=== PATIENT | female | born 1945 | race Caucasian/White ===

== ENCOUNTER 2016-06-30 10:03 | Inpatient (IN) | payer MEDICARE, MEDICAID ==
[~2016-06-30] VITALS: Ht 149.9 cm; Wt 36.3 kg
[~2016-06-30 10:03] MED LIST: ALBU8.5H2 INHALATION; ASPI81TA3 PO; ATRV10T PO; CALC-890 PO; CIPR-231 PO; METH2.5T PO; MULT-1018 PO; OXYB5TAB PO; PRD2.5T PO; SERT50TA PO; WARF2.5T82 PO
[2016-06-30 10:08] VITALS: BP 84/51; PULSE 89; RESP 28; O2SAT 92
--- NOTE | 2016-06-30 10:17 | ED.REPORT ---
HPI-General Illness Date of Service Jun 30, 2016 ED Provider: Dr. Thomas 70 year old female with a history of stroke, pulmonary embolism on Coumadin with a melinda filter, COPD, and current smoker who presents to the ED due to increased weakness, dysuria and SOB since yesterday. This morning the patient was severely SOB and called Life Alert. Pt's daughter is a nurse and noted her to be dyspneic with a RR of 40 and tachycardic at 120 this morning. En route to the ER the patient's breathing improved. Pt states her breathing is at baseline now. Pt typically uses a cane to walk due to residual L sided weakness from the stroke. Today she has required a wheelchair. Last night the patient had an episode of urinary incontinence that soiled her depends and her bed. She reports "my urethra hurts all the time but it hurts 9/10 when I pee." Pt has been on Cipro recently, but after recent UA, there was not signs of UTI. Additionally, pt has symptoms of malaise, urinary urgency, lethargy, decreased appetite, nausea and vomiting. Pt denies CP. Pt was diagnosed with shingles 1 month ago, but her symptoms have since resolved. Nursing Notes Stated Complaint: SOB/POSS UTI Chief Complaint: Respiratory Distress Nursing Notes Reviewed: Yes Allergies: Coded Allergies: adalimumab (Verified Allergy, Severe, RASH, 07/18/11) omeprazole (Verified Allergy, Severe, GI UPSET, 07/18/11) Scheduled Aspirin Chew (Aspirin Chew) 81 Mg Chew 81 MG PO DAILY Atorvastatin (Lipitor) 10 Mg Tab 10 MG PO DAILY Calcium Carbonate/Vitamin D3 (Calcium 600 + Vit D3 Tablet) 1 Each Tablet 1 EACH PO DAILY Ciprofloxacin (Cipro) 500 Mg Tablet 500 MG PO BID Methotrexate Sodium (Methotrexate) 2.5 Mg Tablet 25 MG PO WEEKLY Multivitamin (Multi Vitamin Daily) 1 Each Tablet 1 EACH PO DAILY Oxybutynin Chloride ER (Oxybutynin Chloride ER) 5 Mg Tab.er.24 5 MG PO HS Prednisone (PredniSONE) 2.5 Mg Tab 2 MG PO DAILY Sertraline HCl (Zoloft) 50 Mg Tablet 50 MG PO DAILY Warfarin Sodium (Warfarin Sodium) 2.5 Mg Tablet 2.5 MG PO A Warfarin Sodium (Warfarin Sodium) 2.5 Mg Tablet 1.25 MG PO A Scheduled PRN Albuterol HFA (Proair HFA) 8.5 Gm Hfa.aer.ad 2 PUFFS INHALATION Q4H PRN PRN For Shortness of Breath General Time Seen by MD: 10:17 Chief Complaint Breathing problem Hx Obtained From: Patient, Daughter Arrived By: Wheelchair Sudden in Onset?: No Severity: Current: Mild Severity: Maximum: Moderate Associated with: Reports: Shortness of breath, Weakness, Denies: Fever Past Medical History Past Medical History Rheumatoid arthritis Pulmonary embolism on Coumadin Shingles Reports: Asthma, COPD, Stroke Past Surgical History Left knee replacement, left hip replacement, melinda filter Smoking History Current Every Day Smoker Social History Alcohol Use: Denies alcohol use Drug Use: Denies drug use Ambulatory Status Independent Review of Systems Full Review of Systems Constitutional: Reports: Malaise, Weakness - generalized, Denies: Fever Respiratory: Reports: Non-productive cough, Shortness of breath Cardiovascular: Denies: Chest pain GI: Reports: Nausea, Vomiting, Denies: Abdominal pain Female: Reports: Dysuria, Urinary urgency, Denies: Flank pain Skin: Denies Rash Neurologic: Denies: Headache Complete sys rev & neg: except as marked. Physical Exam Vital Signs Vital Signs Date Time Temp Pulse Resp B/P Pulse Ox O2 Delivery O2 Flow Rate FiO2 06/30/16 10:40 83 20 90 Room Air 06/30/16 10:08 36.3 89 28 84/51 92 Room Air Initial VS: Reviewed Head / Eyes: Atraumatic, Normocephalic, PERRL ENT: Conjunctiva normal, No scleral icterus Skin: Warm, Dry, No cyanosis Neurologic: Alert, Oriented, Nonfocal Psychiatric: Mood/affect normal, Behavior normal, Normal thought content Appearance / Presentation: Positive: Cachectic, Frail Neck: Supple, Full range of motion Respiratory / Chest: Breath sounds NL, Breath sounds = bilat, No respiratory distress, No rales, No rhonchi, No wheezing Cardiovascular: Heart rate NL, Regular rhythm, Heart sounds NL, Cap refill not delayed, Peripheral circulation NL No edema Abdomen: Soft, Non-tender, No guarding, No rebound, No palpable mass Organomegaly / Mass / Hernia: Negative: Hepatomegaly, Splenomegaly Upper Extremities Upper Extremity / MS: Neurologic intact, Vascular intact Profound deformities from RA in hands Interpretation & Diagnostics Lab Results Interpretation Result Diagram: 06/30/16 1050 06/30/16 1050 Test 06/30/16 10:50 06/30/16 12:07 White Blood Count 21.4th/mm3 (3.8-10.1) Red Blood Count 4.09mil/mm3 (3.90-5.20) Hemoglobin 12.6g/dL (12.0-15.6) Hematocrit 37.7% (35.0-46.0) Mean Corpuscular Volume 92.2fL (81-100) Mean Corpuscular Hemoglobin 30.8pg (27.0-35.0) Mean Corpuscular Hemoglobin Concent 33.4% (32.0-37.0) Red Cell Distribution Width 16.9% (12.3-15.4) Platelet Count 354bil/L (150-400) Neutrophils (%) (Auto) 91.4% (40-74) Lymphocytes (%) (Auto) 2.2% (14-46) Monocytes (%) (Auto) 6.1% (4-12) Eosinophils (%) (Auto) 0% (0-5) Basophils (%) (Auto) 0.1% (0-3) Prothrombin Time 16.1sec (8.1-12.5) Prothromb Time International Ratio 1.49ratio Sodium Level 136mEq/L (134-144) Potassium Level 4.2mEq/L (3.5-5.2) Chloride Level 96mEq/L (97-108) Carbon Dioxide Level 25mmol/L (18-29) Blood Urea Nitrogen 16mg/dL (8-27) Creatinine 0.71mg/dL (0.57-1.00) Estimat Glomerular Filtration Rate 116mL/min (>59) Glucose Level 113mg/dL (60-99) Calcium Level 8.8mg/dL (8.5-10.1) Total Bilirubin 0.3mg/dL (0.0-1.2) Aspartate Amino Transf (AST/SGOT) 28U/L (0-50) Alanine Aminotransferase (ALT/SGPT) 12U/L (0-32) Alkaline Phosphatase 52U/L (25-165) Troponin T 0.010ug/L (0.0-0.011) Pro-B-Type Natriuretic Peptide 298.5pg/mL (0-301) Total Protein 6.8g/dL (6.4-8.4) Albumin 3.6g/dL (3.4-5.0) Urine Color Yellow (YELLOW) Urine Appearance Hazy (CLEAR,HAZY) Urine pH 5.0 (5.0-8.0) Urine Specific [place] 1.021 (1.003-1.035) Urine Protein 30mg/dL (NEG,TRACE) Urine Glucose (UA) Negativemg/dL (NEGATIVE) Urine Ketones 15mg/dL (NEGATIVE) Urine Occult Blood Small (NEGATIVE) Urine Nitrite Negative (NEGATIVE) Urine Bilirubin Negative (NEGATIVE) Urine Urobilinogen Normalmg/dL (NORMAL) Urine Leukocyte Esterase Moderate (NEGATIVE) Urine RBC 0-2/hpf (0-2) Urine WBC >50/hpf (0-5) Urine Epithelial Cells Moderate/hpf (NONE-MOD) Urine Crystals None seen (NONE SEEN) Urine Bacteria None/hpf (NONE-FEW) Urine Hyaline Casts None/lpf (NONE) Urine Granular Casts None seen (NONE SEEN) Urine Waxy Casts None seen (NONE SEEN) Urine Red Blood Cell Casts None seen (NONE SEEN) Urine White Blood Cell Casts None seen (NONE SEEN) Urine Mucus None seen (None Seen) Urine Trichomonas None seen (NONE SEEN) Urine Yeast None (NONE SEEN) Urinalysis Comment None Urine Culture Reflexed Indicated General Lab Results Interp 1: Labs reviewed ECG Interpretation Time: 10:26 Interpreted by: ED physician Normal ECG Interpretation: Normal ECG w/ rate of... (81) X-Ray Chest Interpretation Chest Xray Interpretation: IMPRESSION: Severe emphysematous change. No acute cardiopulmonary findings. Dictated by: Dena Perez M.D. on 06/30/2016 at 11:06 View: Portable, 1 view Interpretation / Wet Read by: Interpret - Radiologist CT Chest Interpretation IMPRESSION: 1. No acute pulmonary embolus. 2. Severe centrilobular emphysema. 3. Trace right basilar radiopacities. Differential considerations include aspiration, infection, and atelectasis. 4. Aortic atherosclerosis and possible abdominal aortic aneurysm incompletely characterized on this limited view of the abdomen. Dictated by: Dena Perez M.D. on 06/30/2016 at 12:38 Study type: CT pulm angiogram Interpretation / Wet Read by: Interpret - Radiologist Re-Eval/Medical Decision Med Decision/Clinical Course Because of the significant leukocytosis and dramatic dyspnea upon presentation, despite a relatively reassuring workup to this point, I believe overnight observation is appropriate to see if a more definitive diagnosis will declare itself. This woman is gravely disabled from her COPD and continues to smoke and is extremely cachectic and I believe that her reserves have to be minimal. Time of Eval: 11:59 Re-Evaluation/Progress Note: Pt and family updated of labs. Discussed plan for CT chest. Time of Eval: 13:30 Re-Evaluation/Progress Note: Updated pt of labs, ECG and imaging results. Recommended admission. Pt understands and agrees with plan. All questions addressed. Consultation : Referral / Consult Name: Hanna Singh MD Consulted With: Hospitalist Call Returned at: 14:14 College Sports Assistant: Will see patient, Agrees with eval, Agrees with plan, Accepts admit Counseled Regarding: Diagnosis, Lab results, Need for admission Discharge & Departure Primary Impression: Dyspnea Dyspnea type: shortness of breath Qualified Code: R06.02 - Shortness of breath Additional Impression: Leukocytosis Leukocytosis type: unspecified Qualified Code: D72.829 - Elevated white blood cell count, unspecified Disposition: ADMITTED TO HOSPITAL Discharge Condition All VS Reviewed: Yes Referrals: Darius Rooney MD (PCP) Scribe Attestation Portions of this note were transcribed by Karuna Farrar. I, (Dr. Thomas) personally performed the history, physical exam and medical decision-making; I reviewed and confirmed the accuracy of the information in the transcribed note. Signed by: Karuna Farrar. 06/30/2016, 1502 copies to: Darius Rooney MD, Kirk H MD Jun 30, 2016 10:17 Karuna Farrar Jun 30, 2016 10:40
[2016-06-30] MEDS ORDERED: MethylprednisoLONE Sodium Succinate 62.5 mg/mL 2 mL Inj IVPUSH ONE (10:20)
[2016-06-30] MEDS ORDERED: Albuterol-Ipratropium 3 mL Inhalation Solution NEB ONE (10:20)
[2016-06-30 10:40] VITALS: PULSE 83; RESP 20; O2SAT 90
--- NOTE | 2016-06-30 11:08 | DRSVH ---
PROCEDURE: X-RAY CHEST ONE VIEW, PORTABLE ([id number]) INDICATIONS: dyspnea TECHNIQUE: One view of the chest was acquired. COMPARISON: None. FINDINGS: Surgical changes and devices: None. Lungs and pleura: No pleural effusions or pneumothorax. Lungs are clear. The lung volumes are larg e and the diaphragms are flattened suggesting emphysema. Mediastinum: Mediastinal contours appear normal. Heart size is normal. The arch is calcified. Bones and chest wall: No suspicious bony lesions. Overlying soft tissues appear unremarkable. An I VC filter is projected over the epigastric region. IMPRESSION: Severe emphysematous change. No acute cardiopulmonary findings. Dictated by: Dena Perez M.D. on 06/30/2016 at 11:06 Approved by: Dena Perez M.D. on 06/30/2016 at 11:07
[2016-06-30 11:13] LABS: BASOPHILS % (AUTO) 0.1 % (0-3); EOSINOPHILS % (AUTO) 0 % (0-5); MONOCYTES % (AUTO) 6.1 % (4-12); Mean Corpuscular Hemoglobin 30.8 pg (27.0-35.0); Mean Corpuscular Volume 92.2 fL (81-100); NEUTROPHILS % (AUTO) 91.4 % (40-74); Platelet Count 354 bil/L (150-400)
[2016-06-30 11:30] LABS: INR 1.49 ratio
[2016-06-30 11:35] LABS: TROPONIN T 0.01 ug/L (0.0-0.011)
[2016-06-30 12:36] LABS: APPEARANCE,URINE HAZY (CLEAR,HAZY); COLOR,URINE YELLOW (YELLOW); OCCULT BLOOD,URINE SMALL (NEGATIVE); UROBILINOGEN,URINE NORMAL (NORMAL)
--- NOTE | 2016-06-30 12:53 | DRSVH ---
PROCEDURE: CT ANGIO CHEST PULMONARY EMBOLISM ([id number]) INDICATIONS: Dyspnea TECHNIQUE: After the administration of intravenous contrast, 2 mm thick sections acquired from the pulmonary api deneen to the posterior costophrenic angles. 3-dimensional maximum intensity projection (MIP) coronal a nd sagittal reformats were then acquired through the thorax. For radiation dose reduction, the follo wing was used: automated exposure control, adjustment of mA and/or kV according to patient size. COMPARISON: None. FINDINGS: Image quality: Excellent. Pulmonary arteries: Pulmonary arteries are normal in size, and demonstrate no intraluminal filling d efects to suggest central pulmonary embolism. Lungs and pleura: There is severe centrilobular emphysema. Pulmonary scar is present at the lingular base. Trace patchy opacities are present at the right lung base. Mediastinum: Heart size is normal, without pericardial effusion. No mediastinal or hilar adenopathy . Thoracic aorta is normal in caliber and enhancement. Scattered atheromatous calcifications are pre sent within the aortic arch. Esophagus is normal in caliber, without hiatal hernia. Bones and chest wall: No suspicious bony lesions. Ribs and thoracic spine appear intact throughout. Thyroid gland is unremarkable. No axillary or supraclavicular adenopathy. Abdomen: There is likely an abdominal aortic aneurysm which is incompletely characterized. Visualize d upper abdominal solid organs appear otherwise normal in the early arterial phase of enhancement. IMPRESSION: 1. No acute pulmonary embolus. 2. Severe centrilobular emphysema. 3. Trace right basilar radiopacities. Differential considerations include aspiration, infection, and atelectasis. 4. Aortic atherosclerosis and possible abdominal aortic aneurysm incompletely characterized on this l imited view of the abdomen. Dictated by: Dena Perez M.D. on 06/30/2016 at 12:38 Approved by: Dena Perez M.D. on 06/30/2016 at 12:51
[2016-06-30] MEDS ORDERED: Phenazopyridine 97.5 mg Tablet PO PRN (14:50)
[2016-06-30] MEDS ORDERED: Phenazopyridine 97.5 mg Tablet PO ONE (14:50)
--- NOTE | 2016-06-30 14:50 | PCM.HPMED ---
Subjective Date of Service Jun 30, 2016 Primary Provider: Admitting Physician: Primary Care Physician: Darius Rooney MD Attending Physician: Chief Complaint: Shortness of breath [facility] History of present illness 70-year-old female with dyspnea severely this morning , at home respiratory rate 40 heart rate 120 this morning, brought in by EMS, worsening weakness, urinary incontinence acute on chronic. Chronic urethral pain with urination and dull at baseline - the following weren't helpful- recent Cipro 1.5 week ago/pyridium/viocodin The ER, scattered wheeze, blood pressure 84/51, respiratory rate 45 per EMS, improved breathing with DuoNeb's and Solu-Medrol, 90% room air, CBC 20 Review of Systems - none of the following - F/C/ wt change/ MAYA / lightheaded / dizziness / sob / cough / cp / acid reflux //diarrhea / bleeding/bruising / leg swelling / change in voiding / rash, no thrush hx. ambulates FAMILY HX incomplete bladder emptying SOCIAL HX smoker MEDICATIONS Scheduled Aspirin Chew (Aspirin Chew) 81 Mg Chew 81 MG PO DAILY Atorvastatin (Lipitor) 10 Mg Tab 10 MG PO DAILY Calcium Carbonate/Vitamin D3 (Calcium 600 + Vit D3 Tablet) 1 Each Tablet 1 EACH PO DAILY Ciprofloxacin (Cipro) 500 Mg Tablet 500 MG PO BID Methotrexate Sodium (Methotrexate) 2.5 Mg Tablet 25 MG PO WEEKLY Multivitamin (Multi Vitamin Daily) 1 Each Tablet 1 EACH PO DAILY Oxybutynin Chloride ER (Oxybutynin Chloride ER) 5 Mg Tab.er.24 5 MG PO HS Prednisone (PredniSONE) 2.5 Mg Tab 2 MG PO DAILY Sertraline HCl (Zoloft) 50 Mg Tablet 50 MG PO DAILY Warfarin Sodium (Warfarin Sodium) 2.5 Mg Tablet 2.5 MG PO A Warfarin Sodium (Warfarin Sodium) 2.5 Mg Tablet 1.25 MG PO A Scheduled PRN Albuterol HFA (Proair HFA) 8.5 Gm Hfa.aer.ad 2 PUFFS INHALATION Q4H PRN PRN For Shortness of Breath Past Medical/Surgical HX Headache COPD CVA/heart murmur, left-sided residual weakness PE IVC filter 2010 Rheumatoid arthritis knee hip replacement wrist operation Depression Hysterectomy Shingles last month Exam on admission NAD A and O x 3 mood affect WNL NC/AT no icterus no injected eyes EOMI PERRL /no pharyngeal lesions/ no oral lesions / hearing intact Supple neck diminished CTAB equal chest rise / no accessory muscle use / speaks in full sentences / no rrw RRR S1 S2 / no mrg / 2+ radial pulses Soft nt nd + BS no hepatosplenomegaly No edema no cyanosis no ecchymosis of lower extremities No rash / no jaundice FRIEDMAN periurethral vaginal skin w/ red excoriation, no plaques consistent w/ lichen sclerosis/planus, no urethral prolapse EKG 81SR [id number], no ST changes procalcitonin lactic acid UA pending Urine Culture pending INR 1.5 Imaging PROCEDURE: CT ANGIO CHEST PULMONARY EMBOLISM ([id number]) INDICATIONS: Dyspnea TECHNIQUE: After the administration of intravenous contrast, 2 mm thick sections acquired from the pulmonary apices to the posterior costophrenic angles. 3-dimensional maximum intensity projection (MIP) coronal and sagittal reformats were then acquired through the thorax. For radiation dose reduction, the following was used: automated exposure control, adjustment of mA and/or kV according to patient size. COMPARISON: None. FINDINGS: Image quality: Excellent. Pulmonary arteries: Pulmonary arteries are normal in size, and demonstrate no intraluminal filling defects to suggest central pulmonary embolism. Lungs and pleura: There is severe centrilobular emphysema. Pulmonary scar is present at the lingular base. Trace patchy opacities are present at the right lung base. Mediastinum: Heart size is normal, without pericardial effusion. No mediastinal or hilar adenopathy. Thoracic aorta is normal in caliber and enhancement. Scattered atheromatous calcifications are present within the aortic arch. Esophagus is normal in caliber, without hiatal hernia. Bones and chest wall: No suspicious bony lesions. Ribs and thoracic spine appear intact throughout. Thyroid gland is unremarkable. No axillary or supraclavicular adenopathy. Abdomen: There is likely an abdominal aortic aneurysm which is incompletely characterized. Visualized upper abdominal solid organs appear otherwise normal in the early arterial phase of enhancement. IMPRESSION: 1. No acute pulmonary embolus. 2. Severe centrilobular emphysema. 3. Trace right basilar radiopacities. Differential considerations include aspiration, infection, and atelectasis. 4. Aortic atherosclerosis and possible abdominal aortic aneurysm incompletely characterized on this limited view of the abdomen. Active issues and reason for admission sepsis associated w/ Dyspneic/hypotension/leukocytosis due to bilateral pneumonia, confounding subtherapeutic for PE, COPD. --solumedrol -- switch to prednisone --taper to her usual home RA dose when discharged /duoneb/rocephine/waen O2 --sputum cx --SSi and famoitidine while on high dose prednisone Urethral pain due to itchy/erythematous vaginal yeast infection --clotrimazole to vagina qday -- pending Ucx, mycoplasm --f/u urologist if ongoing pain w/o infection and for recently diagnosed bladder diverticulum - pre and post voiding per daughter 31cc then 21cc Chronic issues known prior to admission, present on admission COPD CVA/left-sided residual weakness PE IVC filter 2010 Rheumatoid arthritis knee hip replacement wrist operation Depression smoker --nicotoine patch declined Diet cardiac DVT prophylaxis lovenox therapeutic, coumadin per pharm Code full Disposition inpatient Assessment and plan were discussed with patient and daughter-RN. Allergies Coded Allergies: adalimumab (Verified Allergy, Severe, RASH, 07/18/11) omeprazole (Verified Allergy, Severe, GI UPSET, 07/18/11) PMH Social History Hx Alcohol Use: No Hx Substance Use: No Hx Tobacco Use: Yes Smoking Status: Current Every Day Smoker Exam Vital Signs Vital Sign - Last Date Time Temp Pulse Resp B/P Pulse Ox O2 Delivery O2 Flow Rate FiO2 06/30/16 10:40 83 20 90 Room Air 06/30/16 10:08 36.3 84/51 Lab and Diagnostics Result Diagram: 06/30/16 1050 06/30/16 1050 Hanna Singh MD Jun 30, 2016 14:50 Hanna Singh MD Jun 30, 2016 14:50
[2016-06-30] MEDS ORDERED: Ondansetron 2 mg/mL 2 mL Inj IVPUSH PRN (14:55)
--- NOTE | 2016-06-30 15:30 | NUR ---
ADMIT Pt admitted via gurney at 1530. Report received from Andrew Joseph RN in ED. VSS, no s/sx of distress. Belongings placed at bedside, waiver signed. Admission interventions completed, MED REC reviewed and notified. Assessments completed, pt viewed admission video and oriented to unit, room, and call light.
[2016-06-30 15:42] VITALS: BP 89/54; PULSE 79; RESP 15
[2016-06-30] MEDS ORDERED: cefTRIAXone Inj 2,000 MG in Dextrose 5% Minibag Plus 50 ML IV ONE (15:55)
[2016-06-30] MEDS ORDERED: FOLI0.4T2 PO (16:12)
[2016-06-30] MEDS ORDERED: HYDR-3090 PO (16:25)
[2016-06-30 16:26] VITALS: PULSE 80
[2016-06-30] MEDS ORDERED: FLAX1CAP4 PO (16:29)
[2016-06-30] MEDS: Sodium Chloride LOK Flush 10 mL Syringe IVFLUSH SCH ×2 (16:30→23:53)
[2016-06-30] MEDS ORDERED: Glucose 40% Oral Gel 15 Gm Tube PO PRN (17:15)
[2016-06-30] MEDS: Insulin LISPRO 300 Unit/3 mL Inj SUBQ SCH ×2 (17:30→21:19)
[2016-06-30] MEDS: 0.9% Sodium Chloride 1,000 ML IV SCH ×2 (19:26→23:53)
[2016-06-30 20:00] VITALS: PULSE 80
[2016-06-30 20:38] VITALS: BP 104/61; PULSE 87; RESP 16; O2SAT 92
[2016-07-01] VITALS (10 sets, daily range): BP systolic 91–121; BP diastolic 53–73; PULSE 70–98; RESP 16–22; O2SAT 92–97
--- NOTE | 2016-07-01 05:36 | NUR ---
Respiratory, Sleep: Pt reported feeling short of breath early in the night. Pt did not have her oxygen on at this time, after replacing the oxygen and throughout the night, pt's breathing has felt better. CPOX on maintaining sats mid to upper 90s. Pt requested something to sleep, states not getting any sleep the night before. Melatonin was ordered and given. Pt stated only getting 45 minutes of sleep after medication, although pt is sleeping again at this time.
[2016-07-01] MEDS: Insulin LISPRO 300 Unit/3 mL Inj SUBQ SCH ×4 (08:00→21:48)
[2016-07-01 08:09] LABS: BASOPHILS % (AUTO) 0 % (0-3); EOSINOPHILS % (AUTO) 0 % (0-5); MONOCYTES % (AUTO) 7.1 % (4-12); Mean Corpuscular Hemoglobin 30.1 pg (27.0-35.0); Mean Corpuscular Volume 91.6 fL (81-100); NEUTROPHILS % (AUTO) 85.8 % (40-74); Platelet Count 352 bil/L (150-400)
[2016-07-01 08:25] LABS: Magnesium 1.7 mg/dL (1.6-2.6); Phosphorus 2.5 mg/dL (2.5-4.9)
[2016-07-01] MEDS: Sodium Chloride LOK Flush 10 mL Syringe IVFLUSH SCH ×3 (08:30→23:44)
[2016-07-01] MEDS: Albuterol-Ipratropium 3 mL Inhalation Solution NEB SCH ×4 (08:35→21:11)
[2016-07-01 09:55] LABS: INR 1.46 ratio
[2016-07-01] MEDS: cefTRIAXone Inj 2,000 MG in Dextrose 5% Minibag Plus 50 ML IV SCH (10:00)
[2016-07-01] MEDS: 0.9% Sodium Chloride 1,000 ML IV SCH ×2 (10:01→22:35)
[2016-07-01] MEDS: predniSONE 20 mg Tablet PO SCH (12:08)
--- NOTE | 2016-07-01 13:11 | NUR ---
Social Work-initial assessment: Data:See initial assessment. Pt is a 70 y/o female who was admitted on 06/30/16 for severe dyspnea per H&P. Pt's insurance is [facility] and PCP is Darius Rooney MD. EMR Reviewed. Pt's readmission score is 6-high risk. SW met with pt and daughter Nedra [phone] discuss discharge planning, SW role explained. Pt resides at home alone in [facility] apartments where she remains independent with ADLs. Pt uses a fww or cane and does not drive. Pt has no HH history, but has been to [facility] in the past. Pt has no correction care insurance or VA benefits. SW discussed DPOA/advanced directive, pt states they have completed this, SW encouraged pt to bring a copy into the hospital. Pt's daughter is her [employer]ARNE[employer] caregiver and her CM is Sanjuana Washington, updated clinicals faxed. SW discussed HH services, HH choice list provided. Pt and daughter to discuss, SW to follow up. SW will continue to follow. Assessment:Pt who may benefit from HH. Plan:Pt to discharge home with support from daughter when medically stable. SW to follow up regarding HH services. SW will continue to follow. MARYANNE Gunter Addendum: 07/01/16 at 1314 by MARIYA PUCKETT SS Amended: Links added.
--- NOTE | 2016-07-01 13:20 | PCM.PHAPRO ---
Progress Warfarin Management by Pharmacy Indication: PE hx CHADS2-VASc: 4 Home Dose: Warfarin 2.5 mg daily INR Goal: 2-3 Duration: Unknown Anticoagulation Trends Lab Date Result Dose INR 06/30/16 1.49 None given INR 07/01/16 1.46 Therapeutic bridge therapy: Lovenox 40 mg BID Assessment/Plan - Subtherapeutic INR with no doses given while inpatient. On treatment enoxaparin bridge. -Will restart home warfarin 2.5 mg tonight. -Pharmacy to monitor INR/CBC/signs of bleeding while inpatient. Thanks, Rashaad Ash Pharm.D. Rashaad Ash Jul 01, 2016 13:20
--- NOTE | 2016-07-01 16:56 | PCM.PNMED ---
Subjective Date of Service Jul 01, 2016 Subjective Patient fell much better today Still has difficulty breathing on exertion at room inhaler treatment was greatly helpful for her breathing Flu+ so Tamiflu was started Exam Vital Signs Vital Sign - Last Date Time Temp Pulse Resp B/P Pulse Ox O2 Delivery O2 Flow Rate FiO2 07/01/16 13:34 37.3 83 20 92/53 94 Nasal Cannula 2.00 06/30/16 15:42 93 Intake and Output 06/30/16 06/30/16 07/01/16 Cumulative From/Thru 15:00 23:00 07:00 06/30/16 10:08 - 07/01/16 06:57 Intake Total 1039 ml 1039 ml Balance 1039 ml 1039 ml Intake Oral 320 ml 320 ml IV Total 719 ml 719 ml # Voids 2 2 # Bowel Movements 0 0 Exam NAD, comfortably laying down on the bed no JVD, MMM, no LAD RRR, nl s1, s2 no mrg Diffuse crackles, coarse BS S,ND,NT,normoactive BS+ warm, no edema, pulses 2/2 IVs and Medications Medications Reviewed: Medications were reviewed in detail Lab and Diagnostics Result Diagram: 07/01/16 0745 07/01/16 0745 Assessment & Plan Acute and active Acute respiratory failure secondary to influenza A pneumonia and COPD exacerbation, present on admission, -Tamiflu for 5D, ceftriaxone for now, likely to stop tomorrow given low suspicion for bacterial process, low procalcitonin, -s/p solu-medrol in ED, continue prednisone 40 mg(2mg at home) 5 days and transitioned back to home dose -Continue duonebs every 4 hours, likely switch to prn tomorrow Chronic issues known prior to admission, present on admission #recent hx of shingles on Lt flank, benadryl prn for itching. #Urethral pain due to itchy/erythematous vaginal yeast infection, currently asymptomatic s/p clotrimazole to vagina qday --f/u urologist if ongoing pain w/o infection and for recently diagnosed bladder diverticulum - pre and post voiding per daughter 31cc then 21cc CVA/left-sided residual weakness, continue asa, PE IVC filter 2010, continue coumadin Rheumatoid arthritis knee hip replacement wrist operation, continue MTX, prednisone Depression, continue zoloft 50mg smoker, nicotoine patch declined Diet cardiac DVT prophylaxis lovenox therapeutic, coumadin per pharm Code full Disposition likely within 1-2days, VTE Mechanical Devices: Intermittant Pneumatic CD Time spent 35 minutes Aaliyah Mercado MD Jul 01, 2016 15:32
--- NOTE | 2016-07-01 19:31 | NUR ---
CODE STATUS/Shingles Pt reported code status is different from what is recorded. Daughter brought in POLST - DNR, Donor sheet and working on getting updated DPOA after she gets it notarized. Copies of forms in chart, scans made for recording, paged to update status. Pt reports continued itching as recovering from shingles. informed, Sunny ordered PRN. Shingle flaking on R side under breasts and wrapping around to back.
[2016-07-02] VITALS (11 sets, daily range): BP systolic 119–129; BP diastolic 69–76; PULSE 62–91; RESP 14–20; O2SAT 93–99
[2016-07-02] MEDS: diphenhydrAMINE 2.5 mg/mL 5 mL Syrup PO PRN ×2 (00:05→22:57)
[2016-07-02] MEDS: Albuterol-Ipratropium 3 mL Inhalation Solution NEB SCH ×5 (00:53→20:17)
--- NOTE | 2016-07-02 05:35 | NUR ---
Uneventful Night: Pt rested through the night with no complaints of pain or discomfort. SOB with exertion. Up to BSC with 1 P assist, shaky and unsteady on feet. 2L NC. Call light within reach, using appropriately. Pleasant and cooperative with care.
[2016-07-02 06:53] LABS: BASOPHILS % (AUTO) 0.1 % (0-3); EOSINOPHILS % (AUTO) 0 % (0-5); MONOCYTES % (AUTO) 7.6 % (4-12); Mean Corpuscular Hemoglobin 30.2 pg (27.0-35.0); Mean Corpuscular Volume 92.8 fL (81-100); NEUTROPHILS % (AUTO) 80.3 % (40-74); Platelet Count 335 bil/L (150-400)
[2016-07-02 07:38] LABS: Magnesium 1.5 mg/dL (1.6-2.6); Phosphorus 2.4 mg/dL (2.5-4.9)
[2016-07-02 07:59] LABS: INR 1.68 ratio
[2016-07-02] MEDS: Insulin LISPRO 300 Unit/3 mL Inj SUBQ SCH (08:00)
[2016-07-02] MEDS: Sodium Chloride LOK Flush 10 mL Syringe IVFLUSH SCH ×3 (08:30→22:57)
[2016-07-02] MEDS: 0.9% Sodium Chloride 1,000 ML IV SCH ×2 (09:36→22:11)
[2016-07-02] MEDS: cefTRIAXone Inj 2,000 MG in Dextrose 5% Minibag Plus 50 ML IV SCH (09:37)
[2016-07-02] MEDS: predniSONE 20 mg Tablet PO SCH (09:39)
--- NOTE | 2016-07-02 10:55 | PCM.PNMED ---
Subjective Date of Service Jul 02, 2016 Subjective Patient felt little better today Still has mild difficult to breathing Intermittently coughing but cannot expectorate Feels stronger today 80% of her baseline Exam Vital Signs Vital Sign - Last Date Time Temp Pulse Resp B/P Pulse Ox O2 Delivery O2 Flow Rate FiO2 07/02/16 10:43 36.8 80 20 119/70 98 Nasal Cannula 2.00 06/30/16 15:42 93 Intake and Output 07/01/16 07/01/16 07/02/16 Cumulative From/Thru 15:00 23:00 07:00 06/30/16 10:08 - 07/02/16 06:24 Intake Total 580 ml 2334 ml 3953 ml Balance 580 ml 2334 ml 3953 ml Intake Oral 580 ml 200 ml 1100 ml IV Total 2134 ml 2853 ml # Voids 2 8 12 # Bowel Movements 2 0 2 Exam NAD, comfortably laying down on the bed no JVD, MMM, no LAD RRR, nl s1, s2 no mrg Diffuse crackles, coarse BS, moving more air clearer than yesterday S,ND,NT,normoactive BS+ warm, no edema, pulses 2/2 IVs and Medications Medications Reviewed: Medications were reviewed in detail Lab and Diagnostics Result Diagram: 07/02/16 0535 07/02/16 0535 Assessment & Plan Acute and active Acute respiratory failure secondary to influenza A pneumonia and COPD exacerbation, present on admission, -pt clinically better today, wbc trending down, remained afebrile -Tamiflu for 5D, s/p ceftriaxone for 2D, stop today given low suspicion for bacterial process, low procalcitonin, -s/p solu-medrol in ED, continue prednisone 40 mg(2mg at home) 5 days and transitioned back to home dose -Continue duonebs every 4 hours, likely switch to prn tomorrow Chronic issues known prior to admission, present on admission #recent hx of shingles on Lt flank, benadryl prn for itching. #Urethral pain due to itchy/erythematous vaginal yeast infection, currently asymptomatic s/p clotrimazole to vagina qday --f/u urologist if ongoing pain w/o infection and for recently diagnosed bladder diverticulum - pre and post voiding per daughter 31cc then 21cc CVA/left-sided residual weakness, continue asa, PE IVC filter 2010, continue coumadin, inr1.6 today Rheumatoid arthritis knee hip replacement wrist operation, continue MTX, prednisone Depression, continue zoloft 50mg smoker, nicotoine patch declined Diet cardiac DVT prophylaxis lovenox therapeutic, coumadin per pharm DNR/DNI per POLST Disposition likely tomorrow home with HH VTE Mechanical Devices: Intermittant Pneumatic CD Time spent 35min Aaliyah Mercado MD Jul 02, 2016 10:55
[2016-07-02] MEDS: Insulin LISPRO Low-Dose Scale SUBQ SCH ×3 (12:00→22:00)
--- NOTE | 2016-07-02 19:37 | NUR ---
Ambulation/Voiding Pt very pleasant and cooperative. Up frequently to BSC, 1P assist, unsteady on feet but tolerates ambulation with mild SOB. Uses call light as instructed. At end of shift, pt reports that she can't always wait for us to come and want to get up on her own. Pt kindly encouraged to use call light, reinforced need to be safe. Report given to next shift to continue care.
[2016-07-03] VITALS (7 sets, daily range): BP systolic 109–132; BP diastolic 66–73; PULSE 77–108; RESP 16–18; O2SAT 95–98
[2016-07-03] MEDS: Albuterol-Ipratropium 3 mL Inhalation Solution NEB SCH ×4 (00:23→11:50)
[2016-07-03] MEDS: 0.9% Sodium Chloride 1,000 ML IV SCH (02:35)
[2016-07-03 06:31] LABS: BASOPHILS % (AUTO) 0.1 % (0-3); EOSINOPHILS % (AUTO) 0 % (0-5); MONOCYTES % (AUTO) 5.8 % (4-12); Mean Corpuscular Hemoglobin 30.4 pg (27.0-35.0); Mean Corpuscular Volume 92.6 fL (81-100); NEUTROPHILS % (AUTO) 64.5 % (40-74); Platelet Count 360 bil/L (150-400)
[2016-07-03 06:44] LABS: INR 2.44 ratio
[2016-07-03 06:49] LABS: Magnesium 1.6 mg/dL (1.6-2.6); Phosphorus 1.9 mg/dL (2.5-4.9)
[2016-07-03] MEDS ORDERED: OSEL30CA PO (07:37)
[2016-07-03] MEDS ORDERED: PRED-508 PO (07:37)
--- NOTE | 2016-07-03 07:40 | PCM.DIMED ---
Discharge Instructions Date of Service Jul 03, 2016 Dates of Hospitalization Jun 30, 2016 at 14:56 Discharge Diagnosis Discharge Diagnosis Influenza a pneumonia COPD exacerbation Medication Instructions Please continue Tamiflu 30 mg twice a day for 3 more days Please continue to take prednisone 40 mg daily for another 3 days, then back to your normal dose of prednisone 10mg daily Diet No restrictions Activity No restrictions Call your provider Shortness of breath Patient Instructions You were hospitalized with difficulty breathing and cough and phlegm, found to have flu infection Please follow medicine instruction Follow-up plan Please follow-up with your primary doctor in 2 weeks Follow-up Provider: Darius Rooney MD Follow-up with PCP in: 2 weeks Aaliyah Mercado MD Jul 03, 2016 07:40
[2016-07-03] MEDS: Insulin LISPRO Low-Dose Scale SUBQ SCH ×2 (08:00→12:00)
[2016-07-03] MEDS: Sodium Chloride LOK Flush 10 mL Syringe IVFLUSH SCH (08:21)
[2016-07-03] MEDS: predniSONE 20 mg Tablet PO SCH (08:21)
[2016-07-03] MEDS: diphenhydrAMINE 2.5 mg/mL 5 mL Syrup PO PRN (08:30)
--- NOTE | 2016-07-03 10:18 | NUR ---
Pt evaluated for home O2. Pt had been weaned down to 1 lpm nasal cannula with resting SaO2 97% and HR 77. Pt then weaned down to RA with resting SaO2 94% and HR 75. Pt then amb on RA. Pt became very SOB with SaO2 decreasing to 87% and HR incresing to 126. Pt taken back to room and placed back on 2 lpm nasal cannula with recovery time of two minutes.
--- NOTE | 2016-07-03 11:45 | NUR ---
choice list provided. MARYANNE Gunter
--- NOTE | 2016-07-03 11:46 | NUR ---
Social Work-discharge: Data:EMR Reviewed. Pt is on day 3 of hospitalization for dyspnea per H&P. Pt is medically stable to discharge home today. Pt resides at home alone, but her daughter is her [facility] caregiver. RT to set up pt for home O2. SW discussed HH with pt and daughter, they are in agreement, HH choice list provided. Pt and daughter have no agency preference, SW referred to rotating calendar and made referral to [facility] for RN,PT, access given. SW informed [facility] that pt is ready to discharge home today. F2F and orders provided to [facility]. Pt's daughter to provide transport home today. All updated and agreeable to plan. Assessment:Pt who would benefit from SNF. Plan:Pt to discharge home today via POV. F2F and orders provided to [facility] for RN and PT. Pt's daughter to continue to assist with [facility] caregiving. RT to arranged home o2. All updated and agreeable to plan. MARYANNE Gunter
--- NOTE | 2016-07-03 14:05 | PCM.DC.MED ---
Discharge Summary Date of Service Jul 03, 2016 Dates of Hospitalization Date of Hospital Admission Jun 30, 2016 at 14:56 Date of Discharge: Jul 03, 2016 Providers: Admitting Physician: Hanna Singh MD Primary Care Physician: Darius Rooney MD Attending Physician: Hanna Singh MD Diagnosis at Time of Discharge Diagnosis at Time of Discharge 1Acute respiratory failure secondary to influenza A pneumonia and COPD exacerbation Chronic issues known prior to admission, present on admission 2recent hx of shingles on Lt flank 3Urethral pain due to itchy/erythematous vaginal yeast infection 4CVA/left-sided residual weakness 5PE IVC filter 2010 6Rheumatoid arthritis 7Depression 8smoker Procedures XRay, CTs & MRIs PROCEDURE: X-RAY CHEST ONE VIEW, PORTABLE ([id number]) INDICATIONS: dyspnea TECHNIQUE: One view of the chest was acquired. COMPARISON: None. FINDINGS: Surgical changes and devices: None. Lungs and pleura: No pleural effusions or pneumothorax. Lungs are clear. The lung volumes are large and the diaphragms are flattened suggesting emphysema. Mediastinum: Mediastinal contours appear normal. Heart size is normal. The arch is calcified. Bones and chest wall: No suspicious bony lesions. Overlying soft tissues appear unremarkable. An IVC filter is projected over the epigastric region. IMPRESSION: Severe emphysematous change. No acute cardiopulmonary findings. Dictated by: Dena Perez M.D. on 06/30/2016 at 11:06 Approved by: Dena Perez M.D. on 06/30/2016 at 11:07 PROCEDURE: CT ANGIO CHEST PULMONARY EMBOLISM ([id number]) INDICATIONS: Dyspnea TECHNIQUE: After the administration of intravenous contrast, 2 mm thick sections acquired from the pulmonary apices to the posterior costophrenic angles. 3-dimensional maximum intensity projection (MIP) coronal and sagittal reformats were then acquired through the thorax. For radiation dose reduction, the following was used: automated exposure control, adjustment of mA and/or kV according to patient size. COMPARISON: None. FINDINGS: Image quality: Excellent. Pulmonary arteries: Pulmonary arteries are normal in size, and demonstrate no intraluminal filling defects to suggest central pulmonary embolism. Lungs and pleura: There is severe centrilobular emphysema. Pulmonary scar is present at the lingular base. Trace patchy opacities are present at the right lung base. Mediastinum: Heart size is normal, without pericardial effusion. No mediastinal or hilar adenopathy. Thoracic aorta is normal in caliber and enhancement. Scattered atheromatous calcifications are present within the aortic arch. Esophagus is normal in caliber, without hiatal hernia. Bones and chest wall: No suspicious bony lesions. Ribs and thoracic spine appear intact throughout. Thyroid gland is unremarkable. No axillary or supraclavicular adenopathy. Abdomen: There is likely an abdominal aortic aneurysm which is incompletely characterized. Visualized upper abdominal solid organs appear otherwise normal in the early arterial phase of enhancement. IMPRESSION: 1. No acute pulmonary embolus. 2. Severe centrilobular emphysema. 3. Trace right basilar radiopacities. Differential considerations include aspiration, infection, and atelectasis. 4. Aortic atherosclerosis and possible abdominal aortic aneurysm incompletely characterized on this limited view of the abdomen. Dictated by: Dena Perez M.D. on 06/30/2016 at 12:38 Approved by: Dena Perez M.D. on 06/30/2016 at 12:51 Other Diagnostics Microbiology ADENOVIRUS RESPIRATORY PCR Final 07/01/16 Not Detected CORONOVIRUS 229E Final 07/01/16 Not Detected CORONOVIRUS HKU1 Final 07/01/16 Not Detected CORONOVIRUS NL63 Final 07/01/16 Not Detected CORONOVIRUS OC43 Final 07/01/16 Not Detected INFLUENZA A PCR Final 07/01/16 Organism 1 INFLUENZA A H3 INFLUENZA A PCR DETECTED TIME CALLED: 752 DATE CALLED: 07/01/16 FLOOR/DOCTOR: VERONICA/JIM Mares CALLED BY: MAR INFLUENZA B PCR Final 07/01/16 Not Detected METAPNEUMOVIRUS PCR Final 07/01/16 Not Detected RHINOVIRUS OR ENTEROVIRUS PCR Final 07/01/16 Not Detected PARAINFLUENZA 1 PCR Final 07/01/16 Not Detected Brief History H&P performed by Dr. Singh on June 30 History of present illness 70-year-old female with dyspnea severely this morning , at home respiratory rate 40 heart rate 120 this morning, brought in by EMS, worsening weakness, urinary incontinence acute on chronic. Chronic urethral pain with urination and dull at baseline - the following weren't helpful- recent Cipro 1.5 week ago/pyridium/viocodin The ER, scattered wheeze, blood pressure 84/51, respiratory rate 45 per EMS, improved breathing with DuoNeb's and Solu-Medrol, 90% room air, CBC 20 Review of Systems - none of the following - F/C/ wt change/ MAYA / lightheaded / dizziness / sob / cough / cp / acid reflux //diarrhea / bleeding/bruising / leg swelling / change in voiding / rash, no thrush hx. ambulates Hospital Course 1Acute respiratory failure secondary to influenza A pneumonia and COPD exacerbation, present on admission, patient was started on Tamiflu, received treatment for COPD with solu-medrol in ED, then prednisone 40 mg(2mg at home) 5 days, duonebs every 4 hours. Patient remained afebrile, required minimal O2 supplement, clinically greatly improved. Patient did receive ceftriaxone for pneumonia for 2 days.however, given low suspicion for bacterial process, low procalcitonin, no fever. it was stopped. Patient still requires oxygen on exertion, O2 sat dropped to high 80s, discharged with home O2 arranged by respiratory therapy to use only on exertion, is expected that patient can wean off oxygen soon given no home oxygen use at baseline, patient was never intubated for COPD exacerbation Chronic issues known prior to admission, present on admission 2recent hx of shingles on Lt flank, controlled with benadryl prn for itching. 3Urethral pain due to itchy/erythematous vaginal yeast infection, remained asymptomatic s/p clotrimazole to vagina qday 4CVA/left-sided residual weakness, continued aspirin 5PE IVC filter 2010, continue coumadin, inr1.6 today 6Rheumatoid arthritis knee hip replacement wrist operation, continue MTX, prednisone 7Depression, continue zoloft 50mg 8smoker, nicotoine patch declined Exam Vital Signs (Last) Date Time Temp Pulse Resp B/P Pulse Ox O2 Delivery O2 Flow Rate FiO2 07/03/16 11:50 77 95 Room Air 07/03/16 08:49 36.9 18 109/66 2.00 06/30/16 15:42 93 Exam NAD, comfortably laying down on the bed no JVD, MMM, no LAD RRR, nl s1, s2 no mrg CTAB, no w,c S,ND,NT,normoactive BS+ warm, no edema, pulses 2/2 Test 06/30/16 10:50 06/30/16 12:07 06/30/16 16:50 07/02/16 05:35 Troponin T 0.010ug/L (0.0-0.011) Pro-B-Type Natriuretic Peptide 298.5pg/mL (0-301) Procalcitonin 0.15ng/mL (See Comment) Urine Color Yellow (YELLOW) Urine Appearance Hazy (CLEAR,HAZY) Urine pH 5.0 (5.0-8.0) Urine Specific Gravel Switch 1.021 (1.003-1.035) Urine Protein 30mg/dL (NEG,TRACE) Urine Glucose (UA) Negativemg/dL (NEGATIVE) Urine Ketones 15mg/dL (NEGATIVE) Urine Occult Blood Small (NEGATIVE) Urine Nitrite Negative (NEGATIVE) Urine Bilirubin Negative (NEGATIVE) Urine Urobilinogen Normalmg/dL (NORMAL) Urine Leukocyte Esterase Moderate (NEGATIVE) Urine RBC 0-2/hpf (0-2) Urine WBC >50/hpf (0-5) Urine Epithelial Cells Moderate/hpf (NONE-MOD) Urine Crystals None seen (NONE SEEN) Urine Bacteria None/hpf (NONE-FEW) Urine Hyaline Casts None/lpf (NONE) Urine Granular Casts None seen (NONE SEEN) Urine Waxy Casts None seen (NONE SEEN) Urine Red Blood Cell Casts None seen (NONE SEEN) Urine White Blood Cell Casts None seen (NONE SEEN) Urine Mucus None seen (None Seen) Urine Trichomonas None seen (NONE SEEN) Urine Yeast None (NONE SEEN) Urinalysis Comment None Urine Culture Reflexed Indicated Hold Gary Top Tube Received (Received) Hemoglobin A1c 5.9% (4.8-5.6) Test 07/03/16 05:50 White Blood Count 6.8th/mm3 (3.8-10.1) Red Blood Count 3.49mil/mm3 (3.90-5.20) Hemoglobin 10.6g/dL (12.0-15.6) Hematocrit 32.3% (35.0-46.0) Mean Corpuscular Volume 92.6fL (81-100) Mean Corpuscular Hemoglobin 30.4pg (27.0-35.0) Mean Corpuscular Hemoglobin Concent 32.8% (32.0-37.0) Red Cell Distribution Width 17.4% (12.3-15.4) Platelet Count 360bil/L (150-400) Neutrophils (%) (Auto) 64.5% (40-74) Lymphocytes (%) (Auto) 29.5% (14-46) Monocytes (%) (Auto) 5.8% (4-12) Eosinophils (%) (Auto) 0% (0-5) Basophils (%) (Auto) 0.1% (0-3) Prothrombin Time 26.6sec (8.1-12.5) Prothromb Time International Ratio 2.44ratio Sodium Level 141mEq/L (134-144) Potassium Level 3.6mEq/L (3.5-5.2) Chloride Level 106mEq/L (97-108) Carbon Dioxide Level 23mmol/L (18-29) Blood Urea Nitrogen 7mg/dL (8-27) Creatinine 0.33mg/dL (0.57-1.00) Estimat Glomerular Filtration Rate 281mL/min (>59) Glucose Level 80mg/dL (60-99) Calcium Level 7.9mg/dL (8.5-10.1) Phosphorus Level 1.9mg/dL (2.5-4.9) Magnesium Level 1.6mg/dL (1.6-2.6) Total Bilirubin 0.2mg/dL (0.0-1.2) Aspartate Amino Transf (AST/SGOT) 32U/L (0-50) Alanine Aminotransferase (ALT/SGPT) 17U/L (0-32) Alkaline Phosphatase 45U/L (25-165) Total Protein 5.3g/dL (6.4-8.4) Albumin 3.0g/dL (3.4-5.0) Discharge Medications Discharge Medications Aspirin Chew (Aspirin Chew) 81 Mg Chew 81 MG PO DAILY (Reported) Atorvastatin (Lipitor) 10 Mg Tab 10 MG PO DAILY (Reported) Calcium Carbonate/Vitamin D3 (Calcium 600 + Vit D3 Tablet) 1 Each Tablet 1 EACH PO DAILY (Reported) Flaxseed/Omega3,6,9/Fatty Acid (Flax Seed Oil 1,300 mg Softgel) 1 Each Capsule 1 EACH PO DAILY (Reported) Methotrexate Sodium (Methotrexate) 2.5 Mg Tablet 25 MG PO WEEKLY (Reported) Multivitamin (Multi Vitamin Daily) 1 Each Tablet 1 EACH PO DAILY (Reported) Oseltamivir Phosphate (Tamiflu) 30 Mg Capsule 30 MG PO BID Prescribed by: AALIYAH BAIRD MD Oxybutynin Chloride ER (Oxybutynin Chloride ER) 5 Mg Tab.er.24 5 MG PO HS ( Reported) Prednisone (PredniSONE) 2.5 Mg Tab 2 MG PO DAILY (Reported) Prednisone (Deltasone) 20 Mg Tablet 40 MG PO DAILY Prescribed by: AALIYAH BAIRD MD Sertraline HCl (Zoloft) 50 Mg Tablet 50 MG PO DAILY (Reported) Warfarin Sodium (Warfarin Sodium) 2.5 Mg Tablet 2.5 MG PO A (Reported) As needed Albuterol HFA (Proair HFA) 8.5 Gm Hfa.aer.ad 2 PUFFS INHALATION Q4H PRN PRN For Shortness of Breath (Reported) Folic Acid (Folic Acid) 0.4 Mg Tablet 0.4 MG PO DAILY PRN PRN Supplement ( Reported) Hydrocodone-Acetaminophen 5-300 mg (Hydrocodone-Acetaminophen 5-300 mg) 1 Each Tablet 1 MG PO Q4H PRN PRN For Pain (Reported) Additional med instructions Please continue Tamiflu 30 mg twice a day for 3 more days Please continue to take prednisone 40 mg daily for another 3 days, then back to your normal dose of prednisone 10mg daily Followup Plan Disposition: Home with home health Follow-up plan Please follow-up with your primary doctor in 2 weeks Discharge Diet: No restrictions Discharge Activity: No restrictions Patient Instructions You were hospitalized with difficulty breathing and cough and phlegm, found to have flu infection Please follow medicine instruction Follow-up Provider: Darius Rooeny MD Follow-up with PCP in: 2 weeks Time spent 65 minutes Aaliyah Baird MD Jul 03, 2016 12:56
--- NOTE | 2016-07-03 14:39 | NUR ---
discharge Orders to discharge pt to home. IV d/c'd intact by charge nurse. Home health set up by social work and home O2 set up by RT. radiology special procedure tech reviewed discharge instructions and medications and provided pt with hard copies of Rx. Pt given carenotes on flu, pneumonia, COPD, prednisone, and tamiflu. Pt escorted out via wheelchair and discharged to home with daughter driving at 1315. Dishcarged in stable condition with all belongings.
== END 2016-07-03 13:04 | disposition home or self-care (01) | DRG 189 ==
LOC: SED 10:03 → MPC 14:56
PROVIDERS: ADMIT Urology; ATTEND Urology
DX: J96.00 Acute respiratory failure, unspecified whether with hypoxia or hypercapnia (principal); J10.01 Influenza due to other identified influenza virus with the same other identified influenza virus pneumonia; J44.1 Chronic obstructive pulmonary disease with (acute) exacerbation; I69.354 Hemiplegia and hemiparesis following cerebral infarction affecting left non-dominant side; J10.1 Influenza due to other identified influenza virus with other respiratory manifestations; B37.9 Candidiasis, unspecified; Z86.711 Personal history of pulmonary embolism; Z79.82 Long term (current) use of aspirin; Z79.52 Long term (current) use of systemic steroids; Z79.01 Long term (current) use of anticoagulants; F17.210 Nicotine dependence, cigarettes, uncomplicated; Z66 Do not resuscitate; F32.9 Major depressive disorder, single episode, unspecified; M06.9 Rheumatoid arthritis, unspecified